=== PATIENT | female | born 1965 | race African-American/Black ===

== ENCOUNTER 2017-03-06 15:57 | Emergency (ER) | payer BC ==
[~2017-03-06] VITALS: Ht 160 cm; Wt 77.1 kg
[2017-03-06 16:10] VITALS: BP 160/112
--- NOTE | 2017-03-06 16:25 | EKG ---
[facility] [address] [place] [address] Test Date: 2017-03-06 Test Time: 16:08:06 Pat Name: RASHMI RAINES Department: Room: Gender: F [employer]: : [id number] Requested By: WICHO RICH Order Number: [id number] Reading MD: Christopher Saldana MD Measurements Intervals [place] Rate: 93 P: 46 WA: 132 QRS: 19 QRSD: 74 T: 32 QT: 312 QTc: 390 Interpretive Statements SINUS RHYTHM Electronically Signed On 03-09-2017 14:15:26 [employer]GER [employer] by Christopher Saldana MD
[2017-03-06 16:46] LABS: POTASSIUM ISTAT 4.2 mmol/L (3.5-5.0)
--- NOTE | 2017-03-06 17:05 | RAD ---
Chest, 2 views, 03/06/2017: History: Chest pain The heart is at the upper limits of normal in size. The pulmonary vascularity is normal. No pulmonary infiltrates are seen. There is no evidence of pleural fluid. IMPRESSION: 1. Borderline cardiomegaly. 2. No acute abnormality is detected.
[2017-03-06] MEDS ORDERED: AZIT250T6 PO (17:41)
[2017-03-06] MEDS ORDERED: BENZ100C PO (17:41)
--- NOTE | 2017-03-06 17:42 | PHYS DOC ---
Past Medical History Past Medical History: Hypertension Alcohol Use: None Drug Use: None Adult General Chief Complaint Chief Complaint: CHEST PAIN HPI HPI Patient is a 51 year old [f__sex] who presents with [] Review of Systems Review of Systems Constitutional: Denies fever or chills [] Eyes: Denies change in visual acuity, redness, or eye pain [] HENT: Denies nasal congestion or sore throat [] Respiratory: Denies cough or shortness of breath [] Cardiovascular: No additional information not addressed in HPI [] GI: Denies abdominal pain, nausea, vomiting, bloody stools or diarrhea [] : Denies dysuria or hematuria [] Musculoskeletal: Denies back pain or joint pain [] Integument: Denies rash or skin lesions [] Neurologic: Denies headache, focal weakness or sensory changes [] Endocrine: Denies polyuria or polydipsia [] All other systems were reviewed and found to be within normal limits, except as documented in this note. Allergies Allergies Allergies Coded Allergies Type Severity Reaction Last Updated Verified Penicillins Allergy Unknown 03/06/17 Yes Physical Exam Physical Exam Constitutional: Well developed, well nourished, no acute distress, non-toxic appearance. [] HENT: Normocephalic, atraumatic, bilateral external ears normal, oropharynx moist, no oral exudates, nose normal. [] Eyes: PERRLA, EOMI, conjunctiva normal, no discharge. [] Neck: Normal range of motion, no tenderness, supple, no stridor. [] Cardiovascular:Heart rate regular rhythm, no murmur [] Lungs & Thorax: Bilateral breath sounds clear to auscultation [] Abdomen: Bowel sounds normal, soft, no tenderness, no masses, no pulsatile masses. [] Skin: Warm, dry, no erythema, no rash. [] Back: No tenderness, no CVA tenderness. [] Extremities: No tenderness, no cyanosis, no clubbing, ROM intact, no edema. [] Neurologic: Alert and oriented X 3, normal motor function, normal sensory function, no focal deficits noted. [] Psychologic: Affect normal, judgement normal, mood normal. [] Current Patient Data Vital Signs Vital Signs Date Time Temp Pulse Resp B/P (MAP) Pulse Ox O2 Delivery O2 Flow Rate FiO2 03/06/17 16:38 86 19 182/88 (119) 98 Room Air 11/17/17 16:10 99.2 99.2 Lab Values Laboratory Tests Test 03/06/17 16:39 03/06/17 16:42 POC Troponin I 0.00 ng/ml (<0.08) POC Hemoglobin 11.9 g/dL (12-15) L POC Hematocrit 35 % (36-40) L POC Sodium 142 mmol/L (135-145) POC Potassium 4.2 mmol/L (3.5-5.0) POC Chloride 107 mmol/L (98-110) POC Total CO2 29 mmol/L (23-32) Anion Gap 11 mmol/L (6-14) POC Blood Urea Nitrogen 12 mg/dL (8-26) POC Creatinine 1.0 mg/dL (0.5-1.4) Glucose Level 101 mg/dL (70-99) H POC Ionized Calcium (Renee) 1.25 mmol/L (1.13-1.32) Laboratory Tests 03/06/17 16:42 EKG EKG [] Radiology/Procedures Radiology/Procedures [] Course & Med Decision Making Course & Med Decision Making Pertinent Labs and Imaging studies reviewed. (See chart for details) [] Dragon Disclaimer Dragon Disclaimer This electronic medical record was generated, in whole or in part, using a voice recognition dictation system. Departure Departure Impression: Primary Impression: Upper respiratory infection Additional Impressions: Hypertension Chest wall pain Disposition: 01 HOME, SELF-CARE Condition: GOOD Referrals: UNKNOWN PCP NAME (PCP) Patient Instructions: Hypertension Additional Instructions: You have an upper rest for infection. Your x-ray was normal today. While there is a possibility that this infection is viral alone, we have given your prescription for Zithromax and antibiotic to cover the possibility of a bacterial or atypical bacterial infection. Use Mucinex DM [id number] as needed for cough and to break up mucus. Take Tessalon as needed for persistent cough unrelieved by the Mucinex. Be aware that your blood pressure is elevated and it appears that you're hypertension requires treatment again. Follow-up with your doctor tomorrow for reevaluation and to discuss reinitiating treatment for your hypertension. Return immediately for new severe or worsening symptoms Scripts Benzonatate (TESSALON PERLE) 100 Mg Capsule 2 CAP PO TID, #42 CAP Prov: WICHO RICH MD 03/06/17 Azithromycin (AZITHROMYCIN TABLET) 250 Mg Tablet 1 PKG PO UD, #6 TAB Take 2 pills the first day and one pill a day for the following 4 days Prov: WICHO RICH MD 03/06/17 Problem Qualifiers WICHO RICH MD Mar 06, 2017 17:42
== END 2017-03-06 17:53 | disposition home or self-care (01) ==
LOC: ER 15:57
DX: R07.89 Other chest pain (principal); J06.9 Acute upper respiratory infection, unspecified; I10 Essential (primary) hypertension; Z88.0 Allergy status to penicillin
CPT/HCPCS: 71020; 80047; 84484; 93005; 99284-25